=== PATIENT | male | born 1955 | race Caucasian/White ===

== ENCOUNTER 2016-05-11 21:41 | Emergency (ER) | payer OTHER | END 2016-05-12 00:54 | disposition home or self-care (01) | LOC: FER 21:41 | DX: S10.93XA Contusion of unspecified part of neck, initial encounter (principal); S20.229A Contusion of unspecified back wall of thorax, initial encounter; I10 Essential (primary) hypertension; E78.5 Hyperlipidemia, unspecified; F17.210 Nicotine dependence, cigarettes, uncomplicated; Z79.899 Other long term (current) drug therapy; Z88.2 Allergy status to sulfonamides; V49.50XA Passenger injured in collision with unspecified motor vehicles in traffic accident, initial encounter; Y92.410 Unspecified street and highway as the place of occurrence of the external cause | CPT/HCPCS: 72040; 72072; 72100; 99284 ==